=== PATIENT | female | born 1965 | race African-American/Black ===

== ENCOUNTER 2025-01-25 20:54 | Emergency (ER) | payer OTHER ==
[~2025-01-25] VITALS: Ht 160 cm; Wt 96.1 kg
[2025-01-25 20:57] VITALS: O2SAT 99
[2025-01-25 21:29] VITALS: TEMP 36.7
[2025-01-25] MEDS: NITROGLYCERIN 0.4MG TABLET SL SL PRN (22:11)
[2025-01-25] MEDS: MORPHINE SULFATE 4 MG/ML INJ (FOR IV/IM USE) IV STA (22:12)
[2025-01-25 22:24] LABS: BASOPHILS % 1.4 % (0.0-2.0); DIFFERENTIAL COMMENT 0; EOSINOPHILS % 3.7 % (0.0-5.0); HEMATOCRIT. 35.5 % (36.0-48.0); LYMPHOCYTES % 46.7 % (20.0-50.0); MEAN CORPUSCULAR HEMOGLOBIN 22.6 pg (28.0-32.0); MEAN CORPUSCULAR HGB CONC 31.1 g/dL (31.0-37.0); MEAN CORPUSCULAR VOLUME 72.7 fL (81.0-99.0); MEAN PLATELET VOLUME 7.9 fl (7.4-10.4); MONOCYTES % 8.7 % (2.0-8.0); NEUTROPHILS % 39.5 % (40.0-76.0); PLATELET 328 x1000/uL (130-400); RED BLOOD CELL COUNT 4.89 mill/uL (4.2-5.4); RED CELL DISTRIBUTION WIDTH 14.5 % (11.6-14.6); WHITE BLOOD COUNT 5.3 x1000/uL (4.5-11.0)
[2025-01-25 22:30] LABS: CHLORIDE 109 mEq/L (98-107); POTASSIUM 3.3 mEq/L (3.5-5.1); PROTHROMBIN TIME 10.9 sec (9.6-11.0); SODIUM 141 mEq/L (136-145)
[2025-01-25 22:31] LABS: CARBON DIOXIDE 23 mEq/L (21-32)
[2025-01-25 22:32] LABS: CALCIUM 9.1 mg/dL (8.7-10.4)
[2025-01-25 22:36] LABS: GLUCOSE 111 mg/dL (70-105)
[2025-01-25 22:37] LABS: ETHANOL BLOOD 122 mg/dL (<10); TROPONIN I HIGH SENSITIVITY 5 ng/L (3.0-34); UREA NITROGEN BLOOD 19 mg/dL (9-23)
[2025-01-25] MEDS: POTASSIUM CHLORIDE 20MEQ TABLET SR PO NR (23:49)
[2025-01-26 00:51] LABS: TROPONIN I HIGH SENSITIVITY 6 ng/L (3.0-34)
[2025-01-26 01:49] VITALS: BP 177/96; PULSE 88; RESP 14; O2SAT 98
== END 2025-01-26 01:59 | disposition short-term general hospital (02) ==
LOC: ER 20:54
DX: R07.89 Other chest pain (principal); E87.6 Hypokalemia; F10.129 Alcohol abuse with intoxication, unspecified; E11.9 Type 2 diabetes mellitus without complications; E78.00 Pure hypercholesterolemia, unspecified; I10 Essential (primary) hypertension; I25.10 Atherosclerotic heart disease of native coronary artery without angina pectoris; I25.2 Old myocardial infarction; Z95.5 Presence of coronary angioplasty implant and graft; Y90.9 Presence of alcohol in blood, level not specified
CPT/HCPCS: 80048; 80320; 83880; 85025; 85610; 84484; 36415; 71045; 93005; 96374; 99285; J2270; G0480